=== PATIENT | male | born 1970 | race Caucasian/White ===

== ENCOUNTER 2020-07-22 13:47 | Outpatient (CLI) | payer BC, OTHER | END 2020-07-22 13:59 | disposition home or self-care (01) | LOC: SLEEP 13:47 | PROVIDERS: ATTEND Nurse Practitioner | DX: G47.33 Obstructive sleep apnea (adult) (pediatric) (principal); G47.10 Hypersomnia, unspecified; J34.3 Hypertrophy of nasal turbinates; H61.23 Impacted cerumen, bilateral ==